=== PATIENT | female | born 1955 | race Caucasian/White ===

== ENCOUNTER → 2017-05-17 | Outpatient (CLI) | payer BC ==
[~2017-05-17] MED LIST: ACCUNEB SO1.25 MG/1 INH; COLACE100 MG PO; FENTANYL PA50 MCG/HR TRANSDERM; FLEXERIL PO; LIDODERM 5%1 PATC1 TRANSDERM; METAXALONE800 MG PO; MILK OF MA2400 MG/10 PO; NORCO 10-325 T1 EACH PO; OXYCONTIN10 M1 PO; PAXIL10 MG; SENOKOT-S1 TA1 PO; TYLENOL325 MG PO; VICOPROFEN 2001 EACH PO
== END ==
LOC: RAD 01:15
DX: Z12.31 Encounter for screening mammogram for malignant neoplasm of breast (principal)

== ENCOUNTER → 2018-09-12 | Outpatient (CLI) | payer BC | LOC: RAD 13:36 | DX: Z12.31 Encounter for screening mammogram for malignant neoplasm of breast (principal) ==

== ENCOUNTER → 2020-04-14 | Outpatient (CLI) | payer BC | LOC: RAD 09:12 | PROVIDERS: ATTEND Internal Medicine | DX: Z12.31 Encounter for screening mammogram for malignant neoplasm of breast (principal) ==

== ENCOUNTER → 2021-04-20 | Outpatient (CLI) | payer OTHER, MEDICARE | LOC: BC 09:38 | PROVIDERS: ATTEND Internal Medicine | DX: Z12.31 Encounter for screening mammogram for malignant neoplasm of breast (principal); N64.89 Other specified disorders of breast ==